=== PATIENT | female | born 1985 | race Caucasian/White ===

== ENCOUNTER 2022-12-27 04:24 | Observation (INO) | payer OTHER, SELFPAY ==
[2022-12-27] VITALS (19 sets, daily range): BP systolic 107–143; BP diastolic 54–119; PULSE 112–165; RESP 14–25; TEMP 36.1–37.8; O2SAT 96–98; BMI 38.0; BMI 37.9
--- NOTE | ~2022-12-27 | XR_ITS ---
XR chest 1V portable DATE: 12/29/2022 08:47 INDICATION: Pneumonia TECHNIQUE: Portable upright AP chest on at 0841 hours COMPARISON: 12/27/2022 PA and lateral chest FINDINGS: There is suboptimal expansion of the lungs with associated mild atelectasis at the right isa ng base. Normal heart size. Minimal if any pleural effusion. No pulmonary vascular congestion or pneumothorax. Included skeletal structures are unremarkable. There is patchy left lower lobe infiltrate/consolidation, with some left lower lobe air bronchograms, but there is considerable improvement since 12/27/2022. IMPRESSION: Residual but considerably improved left lower lobe patchy infiltrate/consolidation Reviewed, dictated and finalized at location A. IMPRESSION: Residual but considerably improved left lower lobe patchy infiltrat e/consolidation
--- NOTE | ~2022-12-27 | XR_ITS ---
EXAMINATION: XR chest 2V DATE: 12/27/2022 13:05 INDICATION: Fever TECHNIQUE: PA and lateral views of the chest are obtained. COMPARISON: CT from today FINDINGS: Again seen are left lower lobe and left perihilar airspace opacities. No pleural effusion o r pneumothorax. The cardiothymic silhouette is normal. The visualized bones and soft tissues are unre markable. IMPRESSION: 1. Left lower lobe and perihilar airspace opacities, consistent with pneumonia. Reviewed, dictated and finalized at location L.
--- NOTE | ~2022-12-27 | CT_ITS ---
Clinical Indication: Shortness of breath CT Scan of the Chest with Contrast: Technique: Contiguous sections were acquired throughout the chest after intravenous administration of 100 cc of Omnipaque 350. Dose reduction technique was used on this scan by utilizing automated expos ure control and iterative reconstruction technique. The dose-length product (DLP) was 510.16 mGy-cm. Findings: There is no evidence of any significant mediastinal, hilar or axillary lymphadenopathy. There is no f illing defect in the pulmonary arterial tree to suggest pulmonary embolus. There is no evidence of ao rtic dissection or aneurysm. There is no evidence of pleural or pericardial effusion. There is extensive left lower lobe consolidation with focal involvement in the left upper lobe in the perihilar region. Findings are consistent with pneumonia. Right lung is clear. Images through the upper abdomen reveal no abnormalities. Impression: Extensive left lower lobe pneumonia with focal involvement in the left upper lobe in the left perihil ar region. No evidence of pulmonary embolus, aortic dissection, or aortic aneurysm. Reviewed, dictated and finalized at [facility]. Impression: Extensive left lower lobe pneumonia with focal involvement in the left upper lo be in the left perihilar region. No evidence of pulmonary embolus, aortic dissection, or aortic aneurysm.
--- NOTE | 2022-12-27 04:37 | ECG_ITS ---
Measurements Intervals [place] Rate: 152 P: 71 KS: 130 QRS: 73 QRSD: 81 T: 50 QT: 313 QTc: 499 Interpretive Statements SINUS TACHYCARDIA, POSSIBLE ATRIAL FLUTTER NONSPECIFIC ST & T-WAVE ABNORMALITY NO PREVIOUS ECG AVAILABLE FOR COMPARISON Electronically Signed On 12-27-2022 15:26:03 CDT by Lala Stout M.D.
[2022-12-27] MEDS: SODIUM CHLORIDE 0.9% IV 1,000 ML 150 ML IV CONT (04:49)
[2022-12-27 04:57] LABS: Hematocrit 35.9 % (37.0-47.0); Hemoglobin 11.8 g/dL (12.0-15.0); Mean Corpuscular HGB Conc 32.9 g/dl (32-36); Mean Corpuscular Hemoglobin 30.1 pg (26-34); Mean Corpuscular Volume 91.6 fl (80-100); Mean Platelet Volume 9.6 fl (7.4-10.4); Platelet Count Result 309 k/mm3 (150-375); Red Blood Count 3.92 M/mm3 (4.2-5.4); Red Cell Distribution Width 13.5 % (11.5-14.5); White Blood Count 20.8 K/mm3 (4.5-10.0)
[2022-12-27 05:10] LABS: Band Neutrophils Percent 11 % (0-6); Lymphocytes Absolute Manual 1.04 K/mm3 (1.1-4.5); Monocytes Absolute Manual 0.41 K/mm3 (0.1-0.90); Monocytes Percent Manual 2 % (3-9); Neutrophils Absolute Manual 19.34 K/mm3 (1.7-7.2); Neutrophils Percent Manual 82 % (46-73); Total Cells Counted 100
[2022-12-27 05:11] LABS: Platelet Estimate Adequate (Adequate); Schistocytes None Seen (NORMAL)
[2022-12-27 05:15] LABS: D Dimer 0.81 ug/mL (<0.48)
[2022-12-27 05:16] LABS: Lactic Acid Reflex 1.5 mmol/L (0.7-2.0)
[2022-12-27 05:18] LABS: Alanine Aminotransferase 31 U/L (6-35); Alkaline Phosphatase 125 U/L (38-126); Anion Gap 9 mmol/L (8-16); Aspartate Amino Transferase 25 U/L (14-36); Bilirubin,Total 0.9 mg/dL (0.2-1.3); Blood Urea Nitrogen 8 mg/dL (7-17); Calcium 8.5 mg/dL (8.4-10.2); Carbon Dioxide 21 mmol/L (22-30); Chloride 105 mmol/L (98-107); Estimated CRCL calculation 99 ml/min; Estimated Glomerular Filt Rate > 60; Glucose 160 mg/dL (65-110); Potassium 3.7 mmol/L (3.4-5.0); Sodium 135 mmol/L (137-145)
[2022-12-27 05:29] LABS: NT Pro B Type Natriuretic Pept 643 pg/mL (19.9-100); Troponin I < 0.012 ng/mL (0.000-0.034)
[2022-12-27 06:06] LABS: Appearance Urine Cloudy (Clear); Bacteria Urine 2+ /hpf; Bilirubin Urine Negative (Negative); Blood Urine Trace (Negative); Color Urine Dark Yellow (Yellow); Glucose Urine UA Negative (Negative); Ketones Urine Trace mg/dL (Negative); Leukocyte Esterase Ur 1+ LEU/UL (Negative); Nitrate Urine Negative (Negative); Protein Urine 2+ mg/dL (Negative); Squamous Epithelial Cell Urine Moderate /hpf (Few)
[2022-12-27] MEDS: IBUPROFEN 600 MG TABLET PO (06:06)
[2022-12-27] MEDS: CEFEPIME 1 GM/NS 50 ML 1 GM/50 ML BAG IVPB (06:06)
[2022-12-27 06:19] LABS: Add Urine Microscopic? YES; Specific Grav Ur 1.036 (1.001-1.035)
--- NOTE | 2022-12-27 06:21 | ED.SOB ---
HPI - SOB/Dyspnea General Chief Complaint: Shortness of Breath/Dyspnea Stated Complaint: pain with inspiration Time Seen by Provider: 12/27/22 04:35 Source: patient Mode of arrival: ambulatory Limitations: no limitations History of Present Illness HPI Narrative: 37-year-old otherwise healthy here with complaints of shortness of breath, fever since last 1 day. Patient states that she went to urgent care and had COVID, influenza and RSV test done which were all negative however she states that she spiked a fever of 101 she took Tylenol prior to coming to the ER. She also mentioned that on December 05 she had a cough , was given antibiotic and steroid pack which she finished. She denies any nausea or vomiting. MD elicited complaint: shortness of breath, cough and pain with inspiration Timing: constant Severity: moderate Relieving factors: nothing Associated symptoms: chest pain, fever and cough Treatment prior to arrival: none Related Data Home Medications Medication Instructions Recorded Confirmed amoxicillin 500 mg-potassium 1 tablet PO TID 10 days 06/17/19 clavulanate 125 mg tablet (Augmentin) hydrocortisone acetate 25 mg 25 mg RECTAL DAILY 06/17/19 rectal suppository (Anusol-HC) norethindrone (contraceptive) 0.35 0.35 mg PO DAILY 06/17/19 mg tablet sennosides 8.6 mg-docusate sodium 1 tab-cap PO BID PRN 06/17/19 50 mg capsule (Senna Plus) Allergies Allergy/AdvReac Type Severity Reaction Status Date / Time No Known Allergies Allergy Verified 12/27/22 04:48 Review of Systems Review of Systems: All systems reviewed & are unremarkable except as noted in HPI and below Constitutional: Constitutional: Reports no additional constitutional complaints Eyes: Eyes: Reports no additional eye complaints ENT: Reports system reviewed and no additional complaints, except as documented Cardiovascular: Cardiovascular: Reports no additional cardiovascular complaints Respiratory: Respiratory: Reports as per HPI Gastrointestinal: Gastrointestinal: Reports no additional gastrointestinal complaints Musculoskeletal: Musculoskeletal: Reports no additional musculoskeletal complaints Neurologic: Reports system reviewed and no additional complaints, except as documented [facility] Past Medical History Medical History (Updated 12/27/22 @ 06:39 by David Davis MD) Allergic sinusitis External hemorrhoid HLD (hyperlipidemia) Surgical History Surgical History (Updated 06/17/19 @ 11:22 by Maddie Levine PA-C) H/O: knee surgery (~2004) History of delivery (~01/2019) Hx of tonsillectomy Family History Family History Grandparent Hyperlipidemia Dementia Breast cancer Grandparent Breast cancer Social History Social History (Updated 06/17/19 @ 10:48 by Karyn Perales MA) Smoking status: Never smoker Second hand tobacco smoke exposure: No Alcohol intake: never Substance use: never Substance use type: does not use Living arrangements: with family Additional living arrangements comments: and child Occupation/Education: occupation Gender identity (if verbalized by the patient): Female Spiritual care concerns: No Agree to blood products: No Exam Narrative: GENERAL: Well-appearing, well-nourished, and in no acute distress. HEAD: Normocephalic, atraumatic. EYES: PERRLA and EOMI. ENT: Nares clear, no rhinorrhea . Mucous membranes moist. NECK: Supple. CHEST: Clear to auscultation. No respiratory distress. HEART: Tachycardic. No murmur heard. Normal peripheral pulses. ABDOMEN: Soft, nontender, nondistended, normal active bowel sounds. EXTREMITIES: Normal range of motion. No edema. SKIN: Warm, dry, no rash. NEURO: No focal deficits. Alert and oriented x3. PSYCH: Normal mood and affect. Course Course Emergency Course: 37-year-old otherwise healthy here with left-sided
[2022-12-27] MEDS: AZITHROMYCIN 500 MG/NS 250 ML 500 MG/250 ML BAG 250 MG IVPB (07:12)
[2022-12-27] MEDS: ACETAMINOPHEN 325 MG TABLET 650 MG PO (07:18)
--- NOTE | 2022-12-27 08:00 | PM.IMHP ---
H&P: HPI History of Present Illness Date/Time: 12/27/22 0800 Chief Complaint: Shortness of breath Narrative: Patient is a 37-year-old female with past medical history of allergies, hyperlipidemia, tonsillectomy presented to the ED with complaints of shortness of breath. Patient stated that her cough started and roughly December 05 and has been up and down since. She stated that her shortness of breath really came on with a vengeance last night. She went to urgent care and stated that she was having shooting sharp pain in her left middle back that was worse with a cough. She also endorses fevers, sweats, chills. She stated that her fever before coming in was 103 is the room lesions and she did take ibuprofen which did seem to help with the fever. She also stated that she has had a really bad headache and has been nauseous. As she also noted some palpitations that have since subsided. Patient did note that she has been taking prednisone which was given to her by the urgent care and took 10 days worth and did finish her course. She also had a a prescription for azithromycin however she started feel better by day 3 and did not take the antibiotic. Her also notes that yesterday he walked into her office and noted that she was in the 4 with 3 blankets on and heating pad, and was completely uncomfortable. She denies any chest pain or pressure she also denies any vomiting, lightheadedness, dizziness, weakness, syncope or falls. In the ED was noted that the patient did have tachycardia with heart rate greater than 165. Her CTA of the chest did not show any PEs however did show a left lower lobe pneumonia with migration to the upper lobe. WBCs is greater than 20,000 fever upon arrival was 100? F, she was tachypneic. Lactic acid 1.8. Patient is being admitted to the hospitalist service as an inpatient however required greater than 2 midnights for workup and recovery. Review of Systems Review of Systems: 14 systems reviewed and negative unless noted in the HPI [facility] Past Medical History Medical History Allergic sinusitis External hemorrhoid HLD (hyperlipidemia) Surgical History Surgical History H/O: knee surgery (~2004) History of delivery (~01/2019) Hx of tonsillectomy Family History Family History Grandparent Hyperlipidemia Dementia Breast cancer Grandparent Breast cancer Social History Social History Social History: Patient lives with her and two children. 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 She works from home, her Ovidio is her surrogate, and she wishes to be a full code Smoking status: Never smoker Second hand tobacco smoke exposure: No Alcohol intake: never Substance use: never Substance use type: does not use Lack of Transportation: No Lack of Food: Never True Current Housing: I Have Housing Concerned About Future Housing: No Difficulty Paying Gas/Electric Bills: No Difficulty Paying for Meds: No Currently Unemployed: No Education: Master's Degree or Higher Difficulty w/ Childcare or Family Care: No Living arrangements: with family Additional living arrangements comments: and children Occupation/Education: occupation Additional occupation/education comments: Pharmacist Gender identity (if verbalized by the patient): Female Sexual Orientation (if Verbalized by the Patient): Straight or Heterosexual Spiritual care concerns: No Agree to blood products: Yes Meds Home Medications and Allergies Home Medications Medication Instructions Recorded Confirmed Type norethindrone (contraceptive) 0.35 0.35 mg PO DAILY 06/17/19 12/27/22 History mg tablet
[2022-12-27] MEDS: SODIUM CHLORIDE 0.9% IV 1,000 ML 125 ML IV CONT (08:19)
[2022-12-27] MEDS: SODIUM CHLORIDE 0.9% IV 2,000 ML 999 ML IV CONT (08:37)
[2022-12-27] MEDS: BENZONATATE 100 MG CAPSULE 200 MG PO ×3 (10:06→17:26)
--- NOTE | 2022-12-27 10:16 | ADMGEN ---
This patient, Carmen Enamorado, was admitted to [facility] Surg Room 309-01. Patient/family oriented to hospital policies and general routines including ID bracelet, bed and alarms, visiting hours, pain management, procedures, bathroom and other care routines, personal items, smoking policy, room service/diet, and visiting hours. Information on how to activate the Rapid Response Team has been discussed. Patient/Family are encouraged to report perceived risks to care and to ask questions if they do not understand what they are told or what they should do.
--- NOTE | 2022-12-27 13:16 | ECG_ITS ---
Measurements Intervals [place] Rate: 137 P: 62 CO: 139 QRS: 47 QRSD: 87 T: 35 QT: 330 QTc: 499 Interpretive Statements SINUS TACHYCARDIA NONSPECIFIC T-WAVE ABNORMALITY ABNORMAL RHYTHM ECG COMPARED TO ECG 12/27/2022 04:33:31 NO SIGNIFICANT CHANGES Electronically Signed On 12-27-2022 15:31:25 CDT by Lala Stout M.D.
[2022-12-27] MEDS: ONDANSETRON INJ 4 MG/2 ML VIAL IV PUSH (13:31)
[2022-12-27] MEDS: KETOROLAC 15 MG/ML VIAL (*BKC) 30 MG IV PUSH (13:31)
[2022-12-27 14:14] LABS: Troponin I < 0.012 ng/mL (0.000-0.034)
[2022-12-27] MEDS: methylPREDNISolone SOD SUCC 125 MG VIAL IV PUSH (14:16)
[2022-12-27] MEDS: FUROSEMIDE INJ 40 MG/4 ML VIAL 20 MG IV PUSH (14:16)
--- NOTE | 2022-12-27 17:02 | PC.NURSE ---
Pt arrived to the unit. Pt having difficulty breathing, provider aware. Provider ordered X-ray and medication. Pt has been running tachy on the site monitor. Provider notified. Provider ordered vagal maneuver. Pt tolerated well and heart rate came down into the 120's. Pt now 114. Pt has reported coughing spells are letting up. Pt has reported no pain at this time. Will continue to monitor pt.
[2022-12-28] VITALS (9 sets, daily range): BP systolic 110–116; BP diastolic 62–70; PULSE 80–97; RESP 14–20; TEMP 36.2; O2SAT 98–99
[2022-12-28] MEDS: BENZONATATE 100 MG CAPSULE 200 MG PO ×2 (05:40→20:37)
[2022-12-28 06:37] LABS: Basophils Absolute Auto 0.2 K/mm3 (0.0-0.1); Basophils Percent Auto 0.9 % (0.2-1.2); Hematocrit 31.6 % (37.0-47.0); Hemoglobin 10.3 g/dL (12.0-15.0); Immature Granulocyte Absolute 1.05 K/mm3 (0.00-0.031); Lymphocytes Absolute Auto 1.07 K/mm3 (0.9-3.2); Lymphocytes Percent Auto 5.1 % (18.3-44.2); Mean Corpuscular HGB Conc 32.6 g/dl (32-36); Mean Corpuscular Hemoglobin 30.2 pg (26-34); Mean Corpuscular Volume 92.7 fl (80-100); Mean Platelet Volume 9.9 fl (7.4-10.4); Monocytes Absolute Auto 0.5 K/mm3 (0.1-0.6); Monocytes Percent Auto 2.5 % (2.6-8.5); Neutrophils Absolute Auto 18.1 K/mm3 (1.3-6.7); Neutrophils Percent Auto 86.5 % (45.5-73.1); Platelet Count Result 316 k/mm3 (150-375); Red Blood Count 3.41 M/mm3 (4.2-5.4); Red Cell Distribution Width 13.9 % (11.5-14.5); White Blood Count 20.9 K/mm3 (4.5-10.0)
[2022-12-28 06:47] LABS: Anion Gap 8 mmol/L (8-16); Blood Urea Nitrogen 10 mg/dL (7-17); Calcium 7.9 mg/dL (8.4-10.2); Carbon Dioxide 22 mmol/L (22-30); Chloride 109 mmol/L (98-107); Estimated CRCL calculation 133 ml/min; Estimated Glomerular Filt Rate > 60; Glucose 167 mg/dL (65-110); Potassium 3.3 mmol/L (3.4-5.0); Sodium 139 mmol/L (137-145)
[2022-12-28] MEDS: AZITHROMYCIN 500 MG/NS 250 ML 500 MG/250 ML BAG 250 MG IVPB (08:16)
--- NOTE | 2022-12-28 09:45 | PM.IMPN ---
Progress Note: A&P Assessment and Plan (1) Pneumonia: Qualifiers: Laterality: left Lung location: lower lobe of lung Pneumonia type: due to unspecified organism Qualified Code(s): J18.9 - Pneumonia, unspecified organism Code(s): J18.9 - Pneumonia, unspecified organism Status: Acute Assessment and Plan: Presented with complaints of shortness of breath CTA confirms PNA in the left lower lobe with extension to the upper lobe and hilar region Sputum culture ordered Continue ceftriaxone and azithromycin day 2 Tessalon pearls TID KATE Blood culture pending (2) Severe sepsis: Code(s): A41.9 - Sepsis, unspecified organism; R65.20 - Severe sepsis without septic shock Status: Acute Assessment and Plan: Meets sepsis criteria with fevers of 103 F at home, tachycardia HR 165, Tachypnea 24, Leukocytosis 20.8, Source of infection Source of infection, PNA IV hydration given in the ED, continue at 150 ml/hr Trend labs and vital signs Continue azithromycin and ceftriaxone Blood cultures pending urine cultures pending Sputum culture ordered Appears stable ok to go med tele (3) Tachycardia: Code(s): R00.0 - Tachycardia, unspecified Status: Acute Assessment and Plan: HR noted to be 165 Currently HR down to the 90s Most like related to disease process Continue to trend Tele monitor Plan Patient did complain of chest pain, and stated that she thought it was the fluids. She is wanting to go home, however, would like to see if her WBC will go down. Cardiac system has been resolved. Time Spent With Patient Time: 48 minutes Time with patient: Greater than 35 minutes Subjective Date/time seen: 12/28/22929 Interval history: 12/28/22929 Patient is laying in bed. She stated that she is feeling better. She denies any chest pain, nausea, vomiting, diarrhea, constipation, weakness or fatigue. She does feel better and would like to go home. However, WBC are going up currently at 20.9. Talked to her about the cultures that are pending. 12/27/22? 0800 Patient is a 37-year-old female with past medical history of allergies, hyperlipidemia, tonsillectomy presented to the ED with complaints of shortness of breath.? Patient stated that her cough started and roughly December 05 and has been up and down since.? She stated that her shortness of breath really came on with a vengeance last night.? She went to urgent care and stated that she was having shooting sharp pain in her left middle back that was worse with a cough.? She also endorses fevers, sweats, chills.? She stated that her fever before coming in was 103 is the room lesions and she did take ibuprofen which did seem to help with the fever.? She also stated that she has had a really bad headache and has been nauseous.? As she also noted some palpitations that have since subsided.? Patient did note that she has been taking prednisone which was given to her by the urgent care and took 10 days worth and did finish her course.? She also had a a prescription for azithromycin however she started feel better by day 3 and did not take the antibiotic.? Her also notes that yesterday he walked into her office and noted that she was in the 4 with 3 blankets on and heating pad, and was completely uncomfortable.? She denies any chest pain or pressure she also denies any vomiting, lightheadedness, dizziness, weakness, syncope or falls.? In the ED was noted that the patient did have tachycardia with heart rate greater than 165.? Her CTA of the chest did not show any PEs however did show a left lower lobe pneumonia with migration to the upper lobe.? WBCs is greater than 20,000 fever upon arrival was 100? F, she was tachypneic.? Lactic acid 1.8. Review of Systems Review of Systems: All systems reviewed & are unremarkable except as noted in HPI and below Exam Narrative: [facility]
[2022-12-28] MEDS: POTASSIUM CHLORIDE 20 MEQ TABLET 40 MEQ PO (13:50)
[2022-12-28 15:13] LABS: Hematocrit 30.8 % (37.0-47.0); Hemoglobin 9.8 g/dL (12.0-15.0); Mean Corpuscular HGB Conc 31.8 g/dl (32-36); Mean Corpuscular Hemoglobin 29.7 pg (26-34); Mean Corpuscular Volume 93.3 fl (80-100); Platelet Count Result 336 k/mm3 (150-375); Red Cell Distribution Width 13.8 % (11.5-14.5); White Blood Count 22.8 K/mm3 (4.5-10.0)
[2022-12-28 15:59] LABS: Band Neutrophils Percent 17 % (0-6); Neutrophils Absolute Manual 20.29 K/mm3 (1.7-7.2); Neutrophils Percent Manual 72 % (46-73); Platelet Estimate Adequate (Adequate); Schistocytes None Seen (NORMAL); Total Cells Counted 100
[2022-12-28] MEDS: ACETAMINOPHEN 325 MG TABLET 650 MG PO (17:17)
[2022-12-28] MEDS: ALPRAZolam (*CRX) 0.125 MG TABLET PO (17:17)
[2022-12-29] VITALS: PULSE 88
[2022-12-29 04:00] VITALS: PULSE 86
[2022-12-29 05:52] VITALS: BP 110/64; PULSE 92; RESP 14; TEMP 36.8; O2SAT 97
[2022-12-29 06:34] LABS: Basophils Absolute Auto 0.1 K/mm3 (0.0-0.1); Basophils Percent Auto 0.5 % (0.2-1.2); Eosinophils Absolute Auto 0.1 K/mm3 (0-0.3); Eosinophils Percent Auto 0.3 % (0-4.4); Hematocrit 30.4 % (37.0-47.0); Hemoglobin 9.7 g/dL (12.0-15.0); Immature Granulocyte Absolute 0.29 K/mm3 (0.00-0.031); Immature Granulocyte Percent A 1.6 % (0-0.5); Lymphocytes Absolute Auto 3.04 K/mm3 (0.9-3.2); Lymphocytes Percent Auto 16.5 % (18.3-44.2); Mean Corpuscular HGB Conc 31.9 g/dl (32-36); Mean Corpuscular Hemoglobin 29.5 pg (26-34); Mean Corpuscular Volume 92.4 fl (80-100); Mean Platelet Volume 9.6 fl (7.4-10.4); Monocytes Absolute Auto 0.8 K/mm3 (0.1-0.6); Monocytes Percent Auto 4.1 % (2.6-8.5); Neutrophils Absolute Auto 14.2 K/mm3 (1.3-6.7); Platelet Count Result 371 k/mm3 (150-375); Red Blood Count 3.29 M/mm3 (4.2-5.4); Red Cell Distribution Width 13.9 % (11.5-14.5); White Blood Count 18.5 K/mm3 (4.5-10.0)
[2022-12-29] MEDS: ACETAMINOPHEN 325 MG TABLET 650 MG PO (06:40)
[2022-12-29] MEDS: BENZONATATE 100 MG CAPSULE 200 MG PO (06:40)
[2022-12-29 06:50] LABS: Alanine Aminotransferase 28 U/L (6-35); Albumin Level 3.2 g/dL (3.5-5.1); Alkaline Phosphatase 101 U/L (38-126); Anion Gap 5 mmol/L (8-16); Aspartate Amino Transferase 29 U/L (14-36); Bilirubin,Total 0.3 mg/dL (0.2-1.3); Blood Urea Nitrogen 14 mg/dL (7-17); Calcium 7.8 mg/dL (8.4-10.2); Carbon Dioxide 24 mmol/L (22-30); Chloride 111 mmol/L (98-107); Estimated CRCL calculation 102 ml/min; Estimated Glomerular Filt Rate > 60; Glucose 93 mg/dL (65-110); Magnesium 2.4 mg/dL (1.6-2.3); Potassium 3.9 mmol/L (3.4-5.0); Sodium 140 mmol/L (137-145)
[2022-12-29 08:00] VITALS: PULSE 93
--- NOTE | 2022-12-29 08:03 | PM.DS ---
DS: Admitting Diagnosis Discharge Date 12/29/22814 Admitting Diagnosis LLL PNA, sepsis DS: Discharge Diagnosis Discharge Diagnosis (1) Pneumonia: Qualifiers: Laterality: left Lung location: lower lobe of lung Pneumonia type: due to unspecified organism Qualified Code(s): J18.9 - Pneumonia, unspecified organism Code(s): J18.9 - Pneumonia, unspecified organism Status: Acute Assessment and Plan: Presented with complaints of shortness of breath CTA confirms PNA in the left lower lobe with extension to the upper lobe and hilar region Sputum culture ordered Continue ceftriaxone and azithromycin day 2 Tessalon pearls TID KATE Blood culture pending (2) Severe sepsis: Code(s): A41.9 - Sepsis, unspecified organism; R65.20 - Severe sepsis without septic shock Status: Acute Assessment and Plan: Meets sepsis criteria with fevers of 103 F at home, tachycardia HR 165, Tachypnea 24, Leukocytosis 20.8, Source of infection Source of infection, PNA IV hydration given in the ED, continue at 150 ml/hr Trend labs and vital signs Continue azithromycin and ceftriaxone Blood cultures pending urine cultures pending Sputum culture ordered Appears stable ok to go med tele (3) Tachycardia: Code(s): R00.0 - Tachycardia, unspecified Status: Acute Assessment and Plan: HR noted to be 165 Currently HR down to the 90s Most like related to disease process Continue to trend Tele monitor Plan Patient did complain of chest pain, and stated that she thought it was the fluids. She is wanting to go home, however, would like to see if her WBC will go down. Cardiac system has been resolved. DS: Summary Hospital Course Hospital Course: Patient is a 37-year-old female with a past medical history of hyperlipidemia, sinusitis who presented to the ED with complaints of shortness of breath and a cough. Patient has been struggling with her a cough since December 05. She went to urgent care who did prescribe her steroids and a Z-Vincent. She then noted to have several fevers with the greatest 1B and 103. Upon arrival it was noted that she was tachypneic, tachycardic, leukocytosis with a source of infection being pneumonia. CTA of the chest did show pneumonia in the left lower lung lobe with extension the right upper lobe and hilar region. Patient was started on a azithromycin and ceftriaxone. IV hydration was given. Patient then did have an episode of chest pressure which she stated was like an elephant sitting on her chest cardiac workup was negative for any acute ischemic findings. Chest x-ray at that time confirmed pneumonia. EKG did not show any ischemic changes nor was different from the previous EKG. Troponins were negative x2, BNP was slightly elevated patient was given Lasix, steroids. Patient did okay throughout the night. Heart rate is more stable now in the 90s. Patient states that she feels a lot better. The following day patient did note to have an elevation in WBCs with it reaching 22,000. Currently WBCs 18.5. Patient still states that she feels better than she did. She does still have a slight cough however is stable at this time. UA did appear infectious however urine culture did come back as contamination. Sputum culture does show some white blood cell however has not resulted at this time. Currently patient is stable per labs and vital signs. Instructions to follow-up with primary care provider has been given. Patient verbalizes understanding and is ready to going home at this time Status at Discharge Functional status at discharge: independent ambulation Overall status at discharge: patient is progressing back to baseline Time Spent with Patient Time attestation: Total time spent providing and/or coordinating discharge services: 36 minutes Time spent: Greater than 30 minutes Specific discharge activities: Diagnostic
[2022-12-29] MEDS: AZITHROMYCIN 500 MG/NS 250 ML 500 MG/250 ML BAG 250 MG IVPB (08:14)
--- NOTE | 2022-12-29 16:26 | PC.NURSE ---
Patient called with questions regarding her discharging medications. All questions answered. Patient voiced understanding.
== END 2022-12-29 10:10 | disposition home or self-care (01) ==
LOC: ANHED 06:39 → ANH3MEDSUR 09:53 → ANHIMU 10:36 → ANH3MEDSUR 10:37
PROVIDERS: Nurse Practitioner; Admitting Provider Internal Medicine; Emergency Provider Family Medicine; PCP Family Medicine Sports Medicine; Visit Provider Internal Medicine
DX: J18.9 Pneumonia, unspecified organism (principal); A41.9 Sepsis, unspecified organism; R65.20 Severe sepsis without septic shock; R00.0 Tachycardia, unspecified; R07.9 Chest pain, unspecified; E78.5 Hyperlipidemia, unspecified; R94.31 Abnormal electrocardiogram [ECG] [EKG]; Z20.822 Contact with and (suspected) exposure to COVID-19; D72.829 Elevated white blood cell count, unspecified; R06.82 Tachypnea, not elsewhere classified; R79.89 Other specified abnormal findings of blood chemistry; Z79.52 Long term (current) use of systemic steroids; Z79.3 Long term (current) use of hormonal contraceptives; Z79.899 Other long term (current) drug therapy; Z83.438 Family history of other disorder of lipoprotein metabolism and other lipidemia
CPT/HCPCS: 36415; 71045; 71046; 71275; 80048; 80053; 81001; 83605; 83735; 83880; 84484; 85025; 85380; 85610; 87040; 87070; 87086; 87088; 87205; 93005; 94640; 96361; 96365; 96367; 96375; 99285; A9270; G0378; J0456; J0692; J0696; J1885; J1940; J2405; J2930; J7030; Q9967

== ENCOUNTER → 2023-08-08 09:35 | Outpatient (REF) | payer OTHER, SELFPAY | LOC: ANHLAB 09:35 | PROVIDERS: PCP Family Medicine Sports Medicine; Visit Provider Surgery | DX: D22.9 Melanocytic nevi, unspecified (principal) | CPT/HCPCS: 88305 ==